=== PATIENT | male | born 1960 | race Caucasian/White ===

== ENCOUNTER 2016-04-28 15:52 | Inpatient (IN) | payer OTHER ==
[~2016-04-28] VITALS: Ht 175.3 cm; Wt 113.3 kg
[~2016-04-28 15:52] MED LIST: ACTOS45 MG PO; AMLODIPINE BESY10 MG PO; ARNUITY ELLIP100 MCG IH; ASPIRIN325 MG PO; BACTRIM,SEPT1 TABLET PO; CILOSTAZOL100 MG PO; CLEOCIN300 MG PO; COLACE100 MG PO; COREG12.5 M1 PO; DIOVAN160 MG PO; DOMP10T PO; FLOVENT 11120 INHALA AEROSOL; FLOVENT 11120 INHALA IH; GLYBURIDE5 MG PO; HYDROCHLOROTH12.5 M3 PO; HYDROCHLOROTHIA25 MG PO; INCRUSE ELLI62.5 MCG IH; INSULIN PUMP SCCONT; IRON325 MG PO; JANUVIA100 MG PO; KEFLEX500 MG PO; KLONOPIN1 MG PO; LANTUS 10100 UNITS/ SC; LANTUS100 UNIT/1 SQ; LASIX20 MG PO; LEVAQUIN500 MG PO; LEVOFLOXACIN750 MG PO; LIPITOR20 MG PO; LISINOPRIL40 MG PO; METFORMIN HCL1000 MG PO; NAPROSYN500 MG PO; NOVOLOG 10100 UNITS/ SC; PEPTO BISMOL262 MG PO; PERCOCET 5/31 TABLET PO; PLAVIX75 MG PO; PRAMIPEXOLE D0.25 MG PO; PREDNISONE10 MG PO; PREDNISONE20 MG PO; PROVENTIL HFA6.7 GM IH; PROVENTIL,2.5 MG/3 M IH; ROPINIROLE HCL2 MG PO; SENOKOT,SENN1 TABLET PO; SEREVENT DISKU50 MCG IH; TUDORZA PRESS400 MCG IH; TYLENOL EXTRA500 MG PO; VALSARTAN320 MG PO; VIMPAT100 MG PO; VIMPAT150 MG PO; VYTORIN 10-201 EACH PO; ZANTAC150 MG PO; ZESTRIL,PRINIVI10 MG PO
[2016-04-28 16:14] LABS: BASE EXCESS 6.1 mEq/L (-3 to +3); BICARBONATE 31.8 mEq/L (22-26); CARBOXY HGB 11.2 % (0-5); COMMENTS - BLOOD GASES A+C+; DEVICE PB 840 MASK VENT; FI02 30 %; METHEMOGLOBIN 0 % (0-1.5); MODE SPONT; PCO2 49 mm Hg (35-45); SITE RR; pH 7.42 (7.35-7.45)
[2016-04-28 16:15] LABS: PEEP 5 CM/H20; PRES. SUPPORT 12 CM/H2O; TOTAL RESP RATE 27 resp/min
[2016-04-28 16:35] LABS: EOSINOPHIL (%) 5.2 % (0-5); EOSINOPHIL COUNT 0.4 K/uL (0-0.3); HEMATOCRIT 42.7 % (38.0-50.0); IMMATURE GRANULOCYTE (%) 0.3 % (0.0-0.7); IMMATURE GRANULOCYTE COUNT 0.2 K/uL; LYMPHOCYTE COUNT 1.7 K/uL (1.0-2.8); MCH 31.2 PG (29.0-34.0); MCHC 34.9 G/DL (30.0-36.0); MCV 89.3 FL (86-99); MEAN PLAT.VOLUME 9.5 uM^3 (9.0-12.4); MONOCYTE (%) 8.2 % (3-12); MONOCYTE COUNT 0.6 K/uL (0-0.8); NEUTROPHIL (%) 61.9 % (45-76); NEUTROPHIL COUNT 4.3 K/uL (1.8-6.4); PLATELET COUNT 162 K/uL (156-360); RBC DIS.WIDTH-CV 14.5 % (11.8-14.6); RBC DIS.WIDTH-SD 46.1 % (39-53); RED BLOOD COUNT 4.78 M/uL (4.00-5.50); WHITE BLOOD COUNT 6.9 K/uL (4.1-10.2)
[2016-04-28 16:45] LABS: CHLORIDE 98 mEq/L (99-109); POTASSIUM 4.5 mEq/L (3.7-5.4); SODIUM 141 mEq/L (136-147)
[2016-04-28 16:47] LABS: GLUCOSE 229 mg/dL (70-99)
[2016-04-28 16:48] LABS: ANION GAP 11 MEQ/L (2-14)
[2016-04-28 16:51] LABS: GFR ESTIMATE (CALCULATED) 48 mL/min/
[2016-04-28 16:52] LABS: UREA NITROGEN (BUN) 32 mg/dL (9-23)
[2016-04-28 16:54] LABS: TROP-I INTERPRETATION NEGATIVE; TROPONIN-I < 0.01 ng/mL (0.0-0.30)
[2016-04-28 18:30] LABS: D-DIMER ELISA 0.69 mg/L FEU (< 0.57)
[2016-04-28] MEDS ORDERED: COREG25 M1 PO (18:39)
[2016-04-28] MEDS ORDERED: MIRAPEX1.5 MG PO (18:43)
[2016-04-28] MEDS ORDERED: LASIX40 MG PO (18:44)
[2016-04-28] MEDS ORDERED: ATORVASTATIN CA40 MG PO (18:49)
[2016-04-28] MEDS ORDERED: ERGOCALCIF50000 UNIT PO (18:50)
[2016-04-28] MEDS ORDERED: PROAIR HFA8.5 GM IH (18:52)
[2016-04-28 22:00] VITALS: BP 184/69; BP 187/64
[2016-04-28 23:46] LABS: METH RESISTANT S AUREUS PCR NEGATIVE (NEGATIVE)
[2016-04-28 23:50] LABS: PROBE CHECK PASS; SPECIMEN PROCESSING CONTROL PASS
[2016-04-29] VITALS (8 sets, daily range): BP systolic 136–182; BP diastolic 63–80
[2016-04-29 00:07] LABS: POINT-OF-CARE METER ID UU13113803
[2016-04-29 06:01] LABS: ANION GAP 8 MEQ/L (2-14); CHLORIDE 99 MEQ/L (99-109); GFR ESTIMATE (CALCULATED) > 59 mL/min/; GLUCOSE 308 mg/dL (70-99); POTASSIUM 4.6 MEQ/L (3.7-5.4); SAMPLE HEMOLYSIS CHECK 0; SAMPLE ICTERIC CHECK 0; SAMPLE LIPEMIA CHECK 0; SODIUM 135 MEQ/L (136-147); UREA NITROGEN (BUN) 34 mg/dL (9-23)
[2016-04-29 07:03] LABS: HEMATOCRIT 38.1 % (38.0-50.0); MCH 30.9 PG (29.0-34.0); MCHC 34.6 G/DL (30.0-36.0); MCV 89.2 FL (86-99); PLATELET COUNT 132 K/uL (156-360); RBC DIS.WIDTH-CV 13.9 % (11.8-14.6); RBC DIS.WIDTH-SD 45.2 % (39-53); RED BLOOD COUNT 4.27 M/uL (4.00-5.50)
[2016-04-29 08:56] LABS: POINT-OF-CARE METER ID UU13113731
[2016-04-29 10:35] LABS: INFLUENZA A VIRAL ANTIGEN NEGATIVE; INFLUENZA B VIRAL ANTIGEN NEGATIVE
[2016-04-29 11:49] LABS: POINT-OF-CARE METER ID UU13113731
[2016-04-29 13:59] LABS: ADD MIUA? YES; BILIRUBIN NEGATIVE; BLOOD MODERATE; COLOR YELLOW ((YELLOW)); GLUCOSE (STRIP) >=500; KETONES NEGATIVE; LEUKOCYTES NEGATIVE; NITRITE NEGATIVE; PROTEIN (STRIP) 100; SPECIFIC GRAVITY 1.015 (1.000-1.030); UROBILINOGEN 0.2 MG/DL (0.2-1.0)
[2016-04-29 14:16] LABS: BACTERIA RARE /HPF; EPITHELIAL CELLS RARE /HPF; HYALINE CASTS 0-5 /LPF; MUCUS TRACE /LPF; RED BLOOD CELLS 20-30 /HPF (0-5); UCUL ADDED? NO; WHITE BLOOD CELLS 0-5 /HPF (0-5)
[2016-04-29 18:11] LABS: POINT-OF-CARE METER ID UU13113731
[2016-04-29 22:22] LABS: POINT-OF-CARE METER ID UU13113731
[2016-04-30 07:13] LABS: EOSINOPHIL (%) 0 % (0-5); HEMATOCRIT 39.3 % (38.0-50.0); IMMATURE GRANULOCYTE (%) 0.3 % (0.0-0.7); IMMATURE GRANULOCYTE COUNT 0.1 K/uL; LYMPHOCYTE COUNT 0.8 K/uL (1.0-2.8); MCH 29.5 PG (29.0-34.0); MCHC 33.3 G/DL (30.0-36.0); MCV 88.5 FL (86-99); MONOCYTE (%) 5.6 % (3-12); MONOCYTE COUNT 0.9 K/uL (0-0.8); NEUTROPHIL (%) 88.9 % (45-76); NEUTROPHIL COUNT 13.8 K/uL (1.8-6.4); PLATELET COUNT 156 K/uL (156-360); RBC DIS.WIDTH-CV 14.1 % (11.8-14.6); RBC DIS.WIDTH-SD 45.2 % (39-53); RED BLOOD COUNT 4.44 M/uL (4.00-5.50)
[2016-04-30 07:18] LABS: WHITE BLOOD COUNT 15.5 K/uL (4.1-10.2)
[2016-04-30 07:23] LABS: ALKALINE PHOSPHATASE 59 IU/L (3-129); ANION GAP 8 MEQ/L (2-14); CHLORIDE 98 MEQ/L (99-109); GFR ESTIMATE (CALCULATED) > 59 mL/min/; GLUCOSE 331 mg/dL (70-99); POTASSIUM 4.4 MEQ/L (3.7-5.4); SAMPLE HEMOLYSIS CHECK 0; SAMPLE ICTERIC CHECK 0; SAMPLE LIPEMIA CHECK 0; SODIUM 132 MEQ/L (136-147); TOTAL BILIRUBIN 0.8 MG/DL (0.0-1.0); UREA NITROGEN (BUN) 35 mg/dL (9-23)
[2016-04-30 07:47] VITALS: BP 143/66
[2016-04-30 15:04] VITALS: BP 148/71
[2016-04-30 23:10] VITALS: BP 140/64
[2016-05-01 06:34] LABS: EOSINOPHIL (%) 0.1 % (0-5); IMMATURE GRANULOCYTE (%) 0.4 % (0.0-0.7); LYMPHOCYTE COUNT 0.9 K/uL (1.0-2.8); MCH 28.8 PG (29.0-34.0); MCHC 32.2 G/DL (30.0-36.0); MCV 89.6 FL (86-99); MEAN PLAT.VOLUME 10.2 uM^3 (9.0-12.4); MONOCYTE (%) 6.8 % (3-12); MONOCYTE COUNT 0.8 K/uL (0-0.8); NEUTROPHIL (%) 84.4 % (45-76); NEUTROPHIL COUNT 9.6 K/uL (1.8-6.4); PLATELET COUNT 142 K/uL (156-360); RBC DIS.WIDTH-CV 14.3 % (11.8-14.6); RBC DIS.WIDTH-SD 46.4 % (39-53); RED BLOOD COUNT 4.13 M/uL (4.00-5.50); WHITE BLOOD COUNT 11.4 K/uL (4.1-10.2)
[2016-05-01 06:56] LABS: ALKALINE PHOSPHATASE 55 IU/L (3-129); ANION GAP 6 MEQ/L (2-14); CHLORIDE 97 MEQ/L (99-109); GFR ESTIMATE (CALCULATED) > 59 mL/min/; GLUCOSE 323 mg/dL (70-99); POTASSIUM 4.7 MEQ/L (3.7-5.4); SAMPLE HEMOLYSIS CHECK 0; SAMPLE ICTERIC CHECK 0; SAMPLE LIPEMIA CHECK 0; SODIUM 131 MEQ/L (136-147); UREA NITROGEN (BUN) 40 mg/dL (9-23)
[2016-05-01 06:57] LABS: TOTAL BILIRUBIN 0.6 MG/DL (0.0-1.0)
[2016-05-01 08:13] VITALS: BP 136/70
[2016-05-01 12:26] LABS: GLUCOSE 416 mg/dL (70-99)
[2016-05-01 15:45] VITALS: BP 168/77
[2016-05-01 17:24] LABS: POINT-OF-CARE METER ID UU13113725
[2016-05-01 21:05] VITALS: BP 181/84
[2016-05-01 23:05] VITALS: BP 163/74
[2016-05-02 06:48] LABS: ANION GAP 8 MEQ/L (2-14); CHLORIDE 99 MEQ/L (99-109); GFR ESTIMATE (CALCULATED) > 59 mL/min/; POTASSIUM 3.8 MEQ/L (3.7-5.4); SAMPLE HEMOLYSIS CHECK 0; SAMPLE ICTERIC CHECK 0; SAMPLE LIPEMIA CHECK 0; SODIUM 135 MEQ/L (136-147); UREA NITROGEN (BUN) 42 mg/dL (9-23)
[2016-05-02 07:04] LABS: GLUCOSE 173 mg/dL (70-99)
[2016-05-02 07:36] VITALS: BP 136/69
[2016-05-02 11:30] LABS: POINT-OF-CARE METER ID UU13113725
[2016-05-02] MEDS ORDERED: PREDNISONE20 MG PO (13:43)
[2016-05-02] MEDS ORDERED: LEVOFLOXACIN750 MG PO (13:43)
[2016-05-02] MEDS ORDERED: SPIRIVA RESPIMAT4 GM IH (13:43)
== END 2016-05-02 15:06 | disposition home or self-care (01) | DRG 190 ==
LOC: EME 15:52 → EDOF 19:36 → 4WEST 19:36 → 5EAST 19:36 → 4WEST 21:37 → 5EAST 04-29 22:47
PROVIDERS: Emergency Medicine; Family Medicine; Hospitalist; Internal Medicine; Physician Assistant Medical
DX: J44.1 Chronic obstructive pulmonary disease with (acute) exacerbation (principal); J96.01 Acute respiratory failure with hypoxia; E10.22 Type 1 diabetes mellitus with diabetic chronic kidney disease; E10.65 Type 1 diabetes mellitus with hyperglycemia; K31.84 Gastroparesis; N18.3 Chronic kidney disease, stage 3 (moderate); G47.33 Obstructive sleep apnea (adult) (pediatric); I73.9 Peripheral vascular disease, unspecified; B19.20 Unspecified viral hepatitis C without hepatic coma; I12.9 Hypertensive chronic kidney disease with stage 1 through stage 4 chronic kidney disease, or unspecified chronic kidney disease; E78.5 Hyperlipidemia, unspecified; Z90.49 Acquired absence of other specified parts of digestive tract; F17.210 Nicotine dependence, cigarettes, uncomplicated; Z96.41 Presence of insulin pump (external) (internal); Z46.81 Encounter for fitting and adjustment of insulin pump
CPT/HCPCS: 36600; 71010; 71275; 80048; 80053; 81003; 82803; 82948; 83880; 84484; 84999; 85025; 85027; 85379; 87070; 87205; 87502; 87641; 93005; 93970; 94002; 94640; 94640 76; 94799; 99202; 99281; 99285; J1100; J1650; J1815; J1956; J2920; J2930; J7512; J7644

== ENCOUNTER 2016-10-12 21:49 | Inpatient (IN) | payer OTHER ==
[~2016-10-12] VITALS: Ht 175.3 cm; Wt 121.9 kg
[~2016-10-12 21:49] MED LIST changes: +ATORVASTATIN CA40 MG PO; +COREG25 M1 PO; +ERGOCALCIF50000 UNIT PO; +LASIX40 MG PO; +MIRAPEX1.5 MG PO; +PROAIR HFA8.5 GM IH; +SPIRIVA RESPIMAT4 GM IH
[2016-10-12 22:38] LABS: HEMATOCRIT 45.2 % (38.0-50.0); MCH 28.1 PG (29.0-34.0); MCHC 32.5 G/DL (30.0-36.0); MCV 86.4 FL (86-99); MEAN PLAT.VOLUME 9.1 uM^3 (9.0-12.4); PLATELET COUNT 198 K/uL (156-360); RBC DIS.WIDTH-CV 14.6 % (11.8-14.6); RBC DIS.WIDTH-SD 45.9 % (39-53); RED BLOOD COUNT 5.23 M/uL (4.00-5.50); WHITE BLOOD COUNT 7.7 K/uL (4.1-10.2)
[2016-10-12 22:56] LABS: CHLORIDE 99 mEq/L (99-109); SODIUM 139 mEq/L (136-147)
[2016-10-12 22:57] LABS: GLUCOSE 114 mg/dL (70-99)
[2016-10-12 22:59] LABS: ANION GAP 9 MEQ/L (2-14)
[2016-10-12 23:01] LABS: GFR ESTIMATE (CALCULATED) 45 mL/min/
[2016-10-12 23:02] LABS: UREA NITROGEN (BUN) 37 mg/dL (9-23)
[2016-10-12 23:03] LABS: TROP-I INTERPRETATION NEGATIVE; TROPONIN-I < 0.01 ng/mL (0.0-0.30)
[2016-10-13 00:46] LABS: TROP-I INTERPRETATION NEGATIVE; TROPONIN-I < 0.01 ng/mL (0.0-0.30)
[2016-10-13] MEDS ORDERED: XALATAN2.5 ML BOTH EYES (02:02)
[2016-10-13] MEDS ORDERED: GLUCAGON1 MG IM (02:03)
[2016-10-13] MEDS ORDERED: CYMBALTA60 MG PO (02:03)
[2016-10-13] MEDS ORDERED: PLAQUENIL200 MG PO (02:03)
[2016-10-13 03:01] VITALS: BP 184/84
[2016-10-13 09:08] VITALS: BP 129/71
[2016-10-13 09:25] LABS: TROP-I INTERPRETATION NEGATIVE; TROPONIN-I < 0.01 ng/mL (0.0-0.30)
[2016-10-13 10:45] VITALS: BP 132/79
[2016-10-13 14:47] VITALS: BP 138/81
[2016-10-13 19:55] VITALS: BP 154/77
[2016-10-13 23:24] VITALS: BP 161/76
[2016-10-14 03:35] VITALS: BP 168/78
[2016-10-14 06:09] LABS: HEMATOCRIT 43.3 % (38.0-50.0); MCH 28.7 PG (29.0-34.0); MCHC 33.7 G/DL (30.0-36.0); MCV 85.2 FL (86-99); PLATELET COUNT 172 K/uL (156-360); RBC DIS.WIDTH-CV 14.4 % (11.8-14.6); RED BLOOD COUNT 5.08 M/uL (4.00-5.50); WHITE BLOOD COUNT 10.1 K/uL (4.1-10.2)
[2016-10-14 07:25] LABS: ANION GAP 7 MEQ/L (2-14); CHLORIDE 101 MEQ/L (99-109); GFR ESTIMATE (CALCULATED) 51 mL/min/; SAMPLE HEMOLYSIS CHECK 0; SAMPLE ICTERIC CHECK 0; SAMPLE LIPEMIA CHECK 0; SODIUM 138 MEQ/L (136-147); UREA NITROGEN (BUN) 36 mg/dL (9-23)
[2016-10-14 07:25] LABS: POINT-OF-CARE METER ID UU14188625
[2016-10-14 07:28] LABS: GLUCOSE 226 mg/dL (70-99)
[2016-10-14 07:40] VITALS: BP 160/94
[2016-10-14 07:40] LABS: TROP-I INTERPRETATION NEGATIVE; TROPONIN-I < 0.01 ng/mL (0.0-0.30)
[2016-10-14 11:25] VITALS: BP 179/75
[2016-10-14 11:28] LABS: POINT-OF-CARE METER ID UU14188625
[2016-10-14 16:16] VITALS: BP 184/84
[2016-10-14 16:44] LABS: POINT-OF-CARE METER ID UU14188625
[2016-10-14 19:33] VITALS: BP 179/84
[2016-10-14 23:32] VITALS: BP 180/84
[2016-10-15 03:20] VITALS: BP 164/76
[2016-10-15 05:31] LABS: HEMATOCRIT 44.6 % (38.0-50.0); MCH 27.7 PG (29.0-34.0); MCHC 32.3 G/DL (30.0-36.0); MCV 85.8 FL (86-99); MEAN PLAT.VOLUME 9.2 uM^3 (9.0-12.4); PLATELET COUNT 206 K/uL (156-360); RBC DIS.WIDTH-CV 14.5 % (11.8-14.6); RBC DIS.WIDTH-SD 44.8 % (39-53); WHITE BLOOD COUNT 15.4 K/uL (4.1-10.2)
[2016-10-15 05:56] LABS: ANION GAP 11 MEQ/L (2-14); CHLORIDE 101 MEQ/L (99-109); GFR ESTIMATE (CALCULATED) 56 mL/min/; GLUCOSE 208 mg/dL (70-99); POTASSIUM 5.3 MEQ/L (3.7-5.4); SAMPLE HEMOLYSIS CHECK 0; SAMPLE ICTERIC CHECK 0; SAMPLE LIPEMIA CHECK 0; SODIUM 139 MEQ/L (136-147); UREA NITROGEN (BUN) 38 mg/dL (9-23)
[2016-10-15 08:22] VITALS: BP 162/81
[2016-10-15 08:23] LABS: POINT-OF-CARE METER ID UU14188625
[2016-10-15 11:45] VITALS: BP 143/69
[2016-10-15 11:47] LABS: POINT-OF-CARE METER ID UU14188625
[2016-10-15 16:01] VITALS: BP 184/89
[2016-10-15 19:48] VITALS: BP 178/84
[2016-10-15 23:36] VITALS: BP 181/86
[2016-10-16 03:19] VITALS: BP 133/67
[2016-10-16 07:16] VITALS: BP 124/67
[2016-10-16 07:34] LABS: POINT-OF-CARE METER ID UU14174225
[2016-10-16 11:22] VITALS: BP 160/87
[2016-10-16 11:23] LABS: POINT-OF-CARE METER ID UU13113717
[2016-10-16] MEDS ORDERED: BUPROPION HCL150 M2 PO (11:29)
[2016-10-16] MEDS ORDERED: GABAPENTIN300 MG PO (11:30)
[2016-10-16] MEDS ORDERED: PRAMIPEXOLE DI0.5 MG PO (11:30)
[2016-10-16] MEDS ORDERED: BENZONATATE100 MG PO (11:31)
[2016-10-16] MEDS ORDERED: PREDNISONE10 MG PO (11:34)
[2016-10-16] MEDS ORDERED: OMNICEF300 MG PO (11:39)
== END 2016-10-16 13:14 | disposition home or self-care (01) | DRG 190 ==
LOC: RME 21:49 → EME 21:49 → EDOF 10-13 01:22 → 5SOUTH 10-13 01:22 → ENRESERV 10-13 01:23 → 5SOUTH 10-13 02:37 → ENPENDDIS 10-16 → 5SOUTH 10-16 13:14
PROVIDERS: Hospitalist; Nurse Practitioner Adult Health; Physician Assistant Medical
DX: J44.0 Chronic obstructive pulmonary disease with (acute) lower respiratory infection (principal); J18.9 Pneumonia, unspecified organism; N18.3 Chronic kidney disease, stage 3 (moderate); I12.9 Hypertensive chronic kidney disease with stage 1 through stage 4 chronic kidney disease, or unspecified chronic kidney disease; G47.33 Obstructive sleep apnea (adult) (pediatric); E11.22 Type 2 diabetes mellitus with diabetic chronic kidney disease; E11.43 Type 2 diabetes mellitus with diabetic autonomic (poly)neuropathy; K31.84 Gastroparesis; E78.5 Hyperlipidemia, unspecified; K21.9 Gastro-esophageal reflux disease without esophagitis; M06.9 Rheumatoid arthritis, unspecified; G89.29 Other chronic pain; M48.02 Spinal stenosis, cervical region; F17.200 Nicotine dependence, unspecified, uncomplicated; Z79.4 Long term (current) use of insulin; M50.123 Cervical disc disorder at C6-C7 level with radiculopathy; E66.9 Obesity, unspecified; Z68.39 Body mass index [BMI] 39.0-39.9, adult; Z79.02 Long term (current) use of antithrombotics/antiplatelets; Z79.82 Long term (current) use of aspirin; Z86.73 Personal history of transient ischemic attack (TIA), and cerebral infarction without residual deficits
CPT/HCPCS: 71010; 71020; 72040; 72141; 80048; 82948; 84484; 85027; 93005; 94640; 94640 76; 94799; 99202; 99281; 99285; J0456; J0696; J1200; J1644; J1885; J1956; J2060; J2270; J2920; J3360; J7030; J7050

== ENCOUNTER 2016-10-19 15:37 | Inpatient (IN) | payer OTHER ==
[~2016-10-19] VITALS: Ht 175.3 cm; Wt 120.4 kg
[~2016-10-19 15:37] MED LIST changes: +BENZONATATE100 MG PO; +BUPROPION HCL150 M2 PO; +CYMBALTA60 MG PO; +GABAPENTIN300 MG PO; +GLUCAGON1 MG IM; +OMNICEF300 MG PO; +PLAQUENIL200 MG PO; +PRAMIPEXOLE DI0.5 MG PO; +XALATAN2.5 ML BOTH EYES
[2016-10-19 16:18] LABS: BASE EXCESS 3.9 mEq/L (-3 to +3); BICARBONATE 30.2 mEq/L (22-26); CARBOXY HGB 7.8 % (0-5); METHEMOGLOBIN 1.1 % (0-1.5); PCO2 51 mm Hg (35-45); PO2 52 mm Hg (80-100); pH 7.38 (7.35-7.45)
[2016-10-19 16:19] LABS: COMMENTS - BLOOD GASES A+C+; DEVICE RA; SITE LR; TOTAL RESP RATE 14 resp/min
[2016-10-19 16:48] LABS: HEMATOCRIT 39.6 % (38.0-50.0); MCH 27.9 PG (29.0-34.0); MCHC 32.8 G/DL (30.0-36.0); MEAN PLAT.VOLUME 9.4 uM^3 (9.0-12.4); PLATELET COUNT 179 K/uL (156-360); RBC DIS.WIDTH-CV 14.5 % (11.8-14.6); RBC DIS.WIDTH-SD 44.4 % (39-53); RED BLOOD COUNT 4.66 M/uL (4.00-5.50); WHITE BLOOD COUNT 10.9 K/uL (4.1-10.2)
[2016-10-19 16:57] LABS: CHLORIDE 101 mEq/L (99-109); POTASSIUM 4.3 mEq/L (3.7-5.4); SODIUM 139 mEq/L (136-147)
[2016-10-19 17:00] LABS: GLUCOSE 183 mg/dL (70-99)
[2016-10-19 17:01] LABS: ANION GAP 10 MEQ/L (2-14)
[2016-10-19 17:02] LABS: TOTAL BILIRUBIN 0.4 mg/dL (0.0-1.0)
[2016-10-19 17:03] LABS: ALKALINE PHOSPHATASE 66 IU/L (3-129); GFR ESTIMATE (CALCULATED) 35 mL/min/
[2016-10-19 17:06] LABS: UREA NITROGEN (BUN) 65 mg/dL (9-23)
[2016-10-19 17:12] LABS: TROP-I INTERPRETATION NEGATIVE; TROPONIN-I 0.01 ng/mL (0.0-0.30)
[2016-10-19 17:44] LABS: ADD MIUA? YES; BILIRUBIN NEGATIVE; BLOOD SMALL; COLOR YELLOW ((YELLOW)); GLUCOSE (STRIP) NEGATIVE; KETONES NEGATIVE; LEUKOCYTES NEGATIVE; NITRITE NEGATIVE; PROTEIN (STRIP) 30; SPECIFIC GRAVITY 1.011 (1.000-1.030); UROBILINOGEN 0.2 MG/DL (0.2-1.0)
[2016-10-19 17:54] LABS: BACTERIA NONE SEEN /HPF; EPITHELIAL CELLS NONE SEEN /HPF; MUCUS TRACE /LPF; WHITE BLOOD CELLS 0-5 /HPF (0-5)
[2016-10-19] MEDS ORDERED: PREDNISONE10 MG PO (22:02)
[2016-10-19 23:32] VITALS: BP 183/79
[2016-10-20 01:51] LABS: METH RESISTANT S AUREUS PCR NEGATIVE (NEGATIVE)
[2016-10-20 01:54] LABS: PROBE CHECK PASS; SPECIMEN PROCESSING CONTROL PASS
[2016-10-20 03:00] VITALS: BP 139/66
[2016-10-20 04:30] VITALS: BP 129/63
[2016-10-20 05:36] LABS: HEMATOCRIT 40.9 % (38.0-50.0); MCHC 33.5 G/DL (30.0-36.0); MCV 86.5 FL (86-99); MEAN PLAT.VOLUME 9.9 uM^3 (9.0-12.4); PLATELET COUNT 171 K/uL (156-360); RBC DIS.WIDTH-CV 14.5 % (11.8-14.6); RBC DIS.WIDTH-SD 45.9 % (39-53); RED BLOOD COUNT 4.73 M/uL (4.00-5.50); WHITE BLOOD COUNT 9.7 K/uL (4.1-10.2)
[2016-10-20 06:44] LABS: ALKALINE PHOSPHATASE 59 IU/L (3-129); ANION GAP 5 MEQ/L (2-14); CHLORIDE 101 MEQ/L (99-109); GFR ESTIMATE (CALCULATED) 42 mL/min/; SAMPLE HEMOLYSIS CHECK 0; SAMPLE ICTERIC CHECK 0; SAMPLE LIPEMIA CHECK 0; SODIUM 137 MEQ/L (136-147); TOTAL BILIRUBIN 0.5 MG/DL (0.0-1.0); UREA NITROGEN (BUN) 51 mg/dL (9-23)
[2016-10-20 06:50] LABS: GLUCOSE 327 mg/dL (70-99); POTASSIUM 5.2 MEQ/L (3.7-5.4)
[2016-10-20 07:59] LABS: POINT-OF-CARE METER ID UU13113700
[2016-10-20 08:28] VITALS: BP 179/81
[2016-10-20 11:19] VITALS: BP 154/67
[2016-10-20 11:58] LABS: BASE EXCESS 0.2 mEq/L (-3 to +3); BICARBONATE 26.5 mEq/L (22-26); CARBOXY HGB 3.7 % (0-5); METHEMOGLOBIN 1.6 % (0-1.5); PCO2 48 mm Hg (35-45); pH 7.35 (7.35-7.45)
[2016-10-20 11:59] LABS: COMMENTS - BLOOD GASES A+C+; DEVICE NC; O2 FLOW 1 L/MIN; PO2 70 mm Hg (80-100); SITE RR; TOTAL RESP RATE 16 resp/min
[2016-10-20 12:43] LABS: POINT-OF-CARE METER ID UU13113831
[2016-10-20 15:21] VITALS: BP 172/78
[2016-10-20 21:00] VITALS: BP 165/81
[2016-10-20 22:02] LABS: POINT-OF-CARE METER ID UU13113700
[2016-10-21] VITALS (10 sets, daily range): BP systolic 130–197; BP diastolic 70–90
[2016-10-21 06:38] LABS: EOSINOPHIL (%) 0.5 % (0-5); EOSINOPHIL COUNT 0.1 K/uL (0-0.3); HEMATOCRIT 41.7 % (38.0-50.0); IMMATURE GRANULOCYTE (%) 1.1 % (0.0-0.7); IMMATURE GRANULOCYTE COUNT 0.2 K/uL; INSTRUMENT ABS NEUTROPHIL CT 13.6 K/uL; LYMPHOCYTE COUNT 1.7 K/uL (1.0-2.8); MCH 28.3 PG (29.0-34.0); MCHC 33.6 G/DL (30.0-36.0); MCV 84.4 FL (86-99); MEAN PLAT.VOLUME 9.4 uM^3 (9.0-12.4); MONOCYTE (%) 8.5 % (3-12); MONOCYTE COUNT 1.5 K/uL (0-0.8); NEUTROPHIL COUNT 13.6 K/uL (1.8-6.4); PLATELET COUNT 199 K/uL (156-360); RBC DIS.WIDTH-CV 14.5 % (11.8-14.6); RED BLOOD COUNT 4.94 M/uL (4.00-5.50)
[2016-10-21 07:12] LABS: ANION GAP 8 MEQ/L (2-14); CHLORIDE 100 MEQ/L (99-109); GFR ESTIMATE (CALCULATED) > 59 mL/min/; GLUCOSE 188 mg/dL (70-99); POTASSIUM 4.2 MEQ/L (3.7-5.4); SAMPLE HEMOLYSIS CHECK 0; SAMPLE ICTERIC CHECK 0; SAMPLE LIPEMIA CHECK 0; SODIUM 139 MEQ/L (136-147); UREA NITROGEN (BUN) 41 mg/dL (9-23)
[2016-10-21 10:40] LABS: POINT-OF-CARE METER ID UU13113700
[2016-10-21 10:40] LABS: POINT-OF-CARE METER ID UU13113831
[2016-10-21 12:02] LABS: POINT-OF-CARE METER ID UU13113725
[2016-10-21 16:32] LABS: POINT-OF-CARE METER ID UU13113725
[2016-10-21 16:35] LABS: ANION GAP 4 MEQ/L (2-14); CHLORIDE 101 MEQ/L (99-109); MAGNESIUM 1.8 mg/dl (1.3-2.7); SAMPLE HEMOLYSIS CHECK 0; SAMPLE ICTERIC CHECK 0; SAMPLE LIPEMIA CHECK 0; SODIUM 136 MEQ/L (136-147)
[2016-10-21 16:47] LABS: GFR ESTIMATE (CALCULATED) > 59 mL/min/; GLUCOSE 199 mg/dL (70-99); UREA NITROGEN (BUN) 39 mg/dL (9-23)
[2016-10-21 16:48] LABS: POTASSIUM 5.1 MEQ/L (3.7-5.4)
[2016-10-21 21:23] LABS: POINT-OF-CARE METER ID UU13113725
[2016-10-22 03:25] VITALS: BP 168/81
[2016-10-22 07:04] VITALS: BP 153/74
[2016-10-22 08:38] LABS: HEMATOCRIT 42.7 % (38.0-50.0); MCH 28.9 PG (29.0-34.0); MCHC 33.7 G/DL (30.0-36.0); MCV 85.6 FL (86-99); MEAN PLAT.VOLUME 9.1 uM^3 (9.0-12.4); PLATELET COUNT 181 K/uL (156-360); RBC DIS.WIDTH-CV 14.8 % (11.8-14.6); RBC DIS.WIDTH-SD 45.9 % (39-53); RED BLOOD COUNT 4.99 M/uL (4.00-5.50); WHITE BLOOD COUNT 10.3 K/uL (4.1-10.2)
[2016-10-22 09:04] LABS: ANION GAP 8 MEQ/L (2-14); CHLORIDE 100 MEQ/L (99-109); GFR ESTIMATE (CALCULATED) > 59 mL/min/; GLUCOSE 131 mg/dL (70-99); POTASSIUM 4.3 MEQ/L (3.7-5.4); SAMPLE HEMOLYSIS CHECK 0; SAMPLE ICTERIC CHECK 0; SAMPLE LIPEMIA CHECK 0; SODIUM 140 MEQ/L (136-147); UREA NITROGEN (BUN) 32 mg/dL (9-23)
== END 2016-10-22 10:38 | disposition home or self-care (01) | DRG 947 ==
LOC: EME 15:37 → EDOF 21:49 → ENRESERV 21:50 → 5WEST 23:22 → ENRESERV 10-20 10:31 → 5EAST 10-21 00:34
PROVIDERS: Hospitalist; Internal Medicine; Physician Assistant Medical
DX: R41.82 Altered mental status, unspecified (principal); N17.9 Acute kidney failure, unspecified; J44.1 Chronic obstructive pulmonary disease with (acute) exacerbation; T42.6X5A Adverse effect of other antiepileptic and sedative-hypnotic drugs, initial encounter; E66.01 Morbid (severe) obesity due to excess calories; G47.33 Obstructive sleep apnea (adult) (pediatric); E11.43 Type 2 diabetes mellitus with diabetic autonomic (poly)neuropathy; E87.2 Acidosis; M48.02 Spinal stenosis, cervical region; N18.3 Chronic kidney disease, stage 3 (moderate); M54.12 Radiculopathy, cervical region; F17.200 Nicotine dependence, unspecified, uncomplicated; Z79.4 Long term (current) use of insulin; Z96.41 Presence of insulin pump (external) (internal); F10.21 Alcohol dependence, in remission; E78.5 Hyperlipidemia, unspecified; Z88.6 Allergy status to analgesic agent; Z68.39 Body mass index [BMI] 39.0-39.9, adult; R26.89 Other abnormalities of gait and mobility; K21.9 Gastro-esophageal reflux disease without esophagitis; Z86.14 Personal history of Methicillin resistant Staphylococcus aureus infection; J96.91 Respiratory failure, unspecified with hypoxia; R06.89 Other abnormalities of breathing
CPT/HCPCS: 36600; 70450; 70551; 71010; 71250; 80048; 80048 91; 80053; 81003; 82803; 82948; 83735; 83880; 84100; 84484; 85025; 85027; 87070; 87106; 87205; 87641; 93005; 94640; 94640 76; 94660; 94799; 95819; 99202; 99281; 99285; G0378; J0360; J0692; J1644; J2060; J2930; J3475; J7030; J7040; J7050; J7512

== ENCOUNTER 2017-01-06 21:38 | Inpatient (IN) | payer OTHER ==
[~2017-01-06] VITALS: Ht 175.3 cm; Wt 125.9 kg
[~2017-01-06 21:38] MED LIST changes: -AMLODIPINE BESY10 MG PO; +AMLODIPINE BESYL5 MG PO
[2017-01-06 22:42] LABS: MCH 29.2 PG (29.0-34.0); MCHC 33.3 G/DL (30.0-36.0); MCV 87.7 FL (86-99); MEAN PLAT.VOLUME 9.3 uM^3 (9.0-12.4); PLATELET COUNT 177 K/uL (156-360); RBC DIS.WIDTH-CV 14.4 % (11.8-14.6); RBC DIS.WIDTH-SD 45.8 % (39-53); RED BLOOD COUNT 4.79 M/uL (4.00-5.50); WHITE BLOOD COUNT 6.8 K/uL (4.1-10.2)
[2017-01-06 22:53] LABS: CHLORIDE 98 mEq/L (99-109); POTASSIUM 4.2 mEq/L (3.7-5.4); SODIUM 141 mEq/L (136-147)
[2017-01-06 22:55] LABS: GLUCOSE 107 mg/dL (70-99)
[2017-01-06 22:57] LABS: ANION GAP 11 MEQ/L (2-14); TOTAL BILIRUBIN 0.5 mg/dL (0.0-1.0)
[2017-01-06 22:59] LABS: ALKALINE PHOSPHATASE 76 IU/L (3-129); GFR ESTIMATE (CALCULATED) 45 mL/min/
[2017-01-06 23:00] LABS: UREA NITROGEN (BUN) 34 mg/dL (9-23)
[2017-01-06 23:01] LABS: DIRECT BILIRUBIN 0.2 mg/dL (0.0-0.3)
[2017-01-06 23:02] LABS: LIPASE 13 U/L (1.0-51.0)
[2017-01-06 23:03] LABS: TROP-I INTERPRETATION NEGATIVE; TROPONIN-I < 0.01 ng/mL (0.0-0.30)
[2017-01-07 01:01] LABS: ADD MIUA? YES; BILIRUBIN NEGATIVE; BLOOD NEGATIVE; COLOR YELLOW ((YELLOW)); GLUCOSE (STRIP) NEGATIVE; KETONES NEGATIVE; LEUKOCYTES NEGATIVE; NITRITE NEGATIVE; PROTEIN (STRIP) 100; SPECIFIC GRAVITY 1.013 (1.000-1.030); UROBILINOGEN 0.2 MG/DL (0.2-1.0)
[2017-01-07 01:05] LABS: BACTERIA NONE SEEN /HPF; EPITHELIAL CELLS NONE SEEN /HPF; MUCUS TRACE /LPF; RED BLOOD CELLS 0-5 /HPF (0-5); UCUL ADDED? NO; WHITE BLOOD CELLS 0-5 /HPF (0-5)
[2017-01-07 05:50] LABS: TROP-I INTERPRETATION NEGATIVE; TROPONIN-I < 0.01 ng/mL (0.0-0.30)
[2017-01-07 06:17] VITALS: BP 189/88
[2017-01-07 07:47] VITALS: BP 176/82
[2017-01-07 08:24] LABS: POINT-OF-CARE METER ID UU14117124
[2017-01-07] MEDS ORDERED: LASIX20 MG PO (11:03)
[2017-01-07 11:07] LABS: POINT-OF-CARE METER ID UU14117124
[2017-01-07 11:48] VITALS: BP 165/79
[2017-01-07 15:23] VITALS: BP 1257/74
[2017-01-07 16:17] LABS: POINT-OF-CARE METER ID UU14208753
[2017-01-07 19:14] VITALS: BP 171/75
[2017-01-07 21:25] LABS: POINT-OF-CARE METER ID UU14117124
[2017-01-07 23:41] VITALS: BP 155/74
[2017-01-08 04:09] VITALS: BP 168/79
[2017-01-08 06:11] LABS: POINT-OF-CARE METER ID UU14188577
[2017-01-08 06:14] LABS: HEMATOCRIT 42.7 % (38.0-50.0); MCH 28.7 PG (29.0-34.0); MEAN PLAT.VOLUME 9.5 uM^3 (9.0-12.4); PLATELET COUNT 154 K/uL (156-360); RBC DIS.WIDTH-CV 14.2 % (11.8-14.6); RBC DIS.WIDTH-SD 44.9 % (39-53); RED BLOOD COUNT 4.91 M/uL (4.00-5.50); WHITE BLOOD COUNT 8.9 K/uL (4.1-10.2)
[2017-01-08 06:34] LABS: ANION GAP 8 MEQ/L (2-14); CHLORIDE 98 MEQ/L (99-109); GFR ESTIMATE (CALCULATED) > 59 mL/min/; GLUCOSE 274 mg/dL (70-99); SAMPLE HEMOLYSIS CHECK 0; SAMPLE ICTERIC CHECK 0; SAMPLE LIPEMIA CHECK 0; SODIUM 137 MEQ/L (136-147); UREA NITROGEN (BUN) 28 mg/dL (9-23)
[2017-01-08 07:17] VITALS: BP 159/75
[2017-01-08 11:06] LABS: POINT-OF-CARE METER ID UU14188577
[2017-01-08 11:54] VITALS: BP 125/58
[2017-01-08 15:38] VITALS: BP 143/65
[2017-01-08 16:03] LABS: POINT-OF-CARE METER ID UU14117124
[2017-01-08 20:01] VITALS: BP 178/78
[2017-01-08 22:00] LABS: POINT-OF-CARE METER ID UU14188577
[2017-01-09 00:07] VITALS: BP 176/78
[2017-01-09 04:46] VITALS: BP 129/61
[2017-01-09 06:32] LABS: POINT-OF-CARE METER ID UU14149397
[2017-01-09 08:06] LABS: POINT-OF-CARE METER ID UU14149397
[2017-01-09 08:25] VITALS: BP 162/74
[2017-01-09 10:12] LABS: POINT-OF-CARE METER ID UU14117124
[2017-01-09 10:12] LABS: POINT-OF-CARE METER ID UU14117124
[2017-01-09 11:17] LABS: POINT-OF-CARE METER ID UU14149397
[2017-01-09 12:19] VITALS: BP 148/72
[2017-01-09 15:54] LABS: POINT-OF-CARE METER ID UU14208753
[2017-01-09 16:51] VITALS: BP 136/70
[2017-01-09 20:11] VITALS: BP 143/65
[2017-01-09 23:29] LABS: POINT-OF-CARE METER ID UU14188577
[2017-01-10] VITALS (10 sets, daily range): BP systolic 126–190; BP diastolic 67–86
[2017-01-10 06:29] LABS: POINT-OF-CARE METER ID UU14149397
[2017-01-10] MEDS ORDERED: ULTRAM50 MG PO (10:29)
[2017-01-10] MEDS ORDERED: PREDNISONE10 MG PO (10:29)
[2017-01-10] MEDS ORDERED: AUGMENTIN500 MG PO (10:32)
[2017-01-10 12:05] LABS: POINT-OF-CARE METER ID UU14149397
[2017-01-10 14:01] LABS: BASE EXCESS 11.1 mEq/L (-3 to +3); BICARBONATE 37.4 mEq/L (22-26); CARBOXY HGB 2.7 % (0-5); COMMENTS - BLOOD GASES A+C+; DEVICE NC; METHEMOGLOBIN 1.7 % (0-1.5); O2 FLOW 2 L/MIN; PCO2 55 mm Hg (35-45); PO2 70 mm Hg (80-100); SITE RR; TOTAL RESP RATE 14 resp/min; pH 7.44 (7.35-7.45)
[2017-01-10 14:12] LABS: POINT-OF-CARE METER ID UU14188577
[2017-01-10 14:14] LABS: EOSINOPHIL (%) 0.7 % (0-5); EOSINOPHIL COUNT 0.1 K/uL (0-0.3); IMMATURE GRANULOCYTE (%) 0.6 % (0.0-0.7); IMMATURE GRANULOCYTE COUNT 0.1 K/uL; INSTRUMENT ABS NEUTROPHIL CT 8.8 K/uL; LYMPHOCYTE COUNT 0.9 K/uL (1.0-2.8); MCH 29.1 PG (29.0-34.0); MCHC 33.3 G/DL (30.0-36.0); MCV 87.5 FL (86-99); MEAN PLAT.VOLUME 9.1 uM^3 (9.0-12.4); MONOCYTE COUNT 0.6 K/uL (0-0.8); NEUTROPHIL (%) 84.2 % (45-76); NEUTROPHIL COUNT 8.8 K/uL (1.8-6.4); PLATELET COUNT 157 K/uL (156-360); RBC DIS.WIDTH-CV 14.4 % (11.8-14.6); RBC DIS.WIDTH-SD 45.4 % (39-53); RED BLOOD COUNT 4.57 M/uL (4.00-5.50); WHITE BLOOD COUNT 10.4 K/uL (4.1-10.2)
[2017-01-10 14:37] LABS: TROP-I INTERPRETATION NEGATIVE; TROPONIN-I 0.02 ng/mL (0.0-0.30)
[2017-01-10 15:55] LABS: POINT-OF-CARE METER ID UU14188577
[2017-01-10 20:32] LABS: TROP-I INTERPRETATION NEGATIVE; TROPONIN-I 0.01 ng/mL (0.0-0.30)
[2017-01-10 20:34] LABS: ANION GAP 6 MEQ/L (2-14); CHLORIDE 96 MEQ/L (99-109); GFR ESTIMATE (CALCULATED) 45 mL/min/; GLUCOSE 347 mg/dL (70-99); POTASSIUM 4.6 MEQ/L (3.7-5.4); SAMPLE HEMOLYSIS CHECK 0; SAMPLE ICTERIC CHECK 0; SAMPLE LIPEMIA CHECK 0; SODIUM 135 MEQ/L (136-147); UREA NITROGEN (BUN) 34 mg/dL (9-23)
[2017-01-10 21:35] LABS: POINT-OF-CARE METER ID UU14208753
[2017-01-11 03:20] LABS: TROP-I INTERPRETATION NEGATIVE; TROPONIN-I < 0.01 ng/mL (0.0-0.30)
[2017-01-11 03:26] VITALS: BP 143/68
[2017-01-11 06:38] LABS: POINT-OF-CARE METER ID UU14117124
[2017-01-11 09:03] VITALS: BP 150/70
== END 2017-01-11 11:01 | disposition home health service (06) | DRG 194 ==
LOC: EME 21:38 → EDOF 01-07 04:41 → 3EAST 01-07 04:41 → ENRESERV 01-07 04:42 → 3EAST 01-07 06:06
PROVIDERS: Emergency Medicine; Hospitalist; Physician Assistant
DX: J18.9 Pneumonia, unspecified organism (principal); J44.0 Chronic obstructive pulmonary disease with (acute) lower respiratory infection; J44.1 Chronic obstructive pulmonary disease with (acute) exacerbation; I13.0 Hypertensive heart and chronic kidney disease with heart failure and stage 1 through stage 4 chronic kidney disease, or unspecified chronic kidney disease; I50.9 Heart failure, unspecified; N18.3 Chronic kidney disease, stage 3 (moderate); E10.22 Type 1 diabetes mellitus with diabetic chronic kidney disease; E10.43 Type 1 diabetes mellitus with diabetic autonomic (poly)neuropathy; K31.84 Gastroparesis; E10.51 Type 1 diabetes mellitus with diabetic peripheral angiopathy without gangrene; E10.65 Type 1 diabetes mellitus with hyperglycemia; T38.0X5A Adverse effect of glucocorticoids and synthetic analogues, initial encounter; R41.0 Disorientation, unspecified; T40.2X5A Adverse effect of other opioids, initial encounter; R07.89 Other chest pain; G47.33 Obstructive sleep apnea (adult) (pediatric); K21.9 Gastro-esophageal reflux disease without esophagitis; I25.10 Atherosclerotic heart disease of native coronary artery without angina pectoris; M06.9 Rheumatoid arthritis, unspecified; I87.8 Other specified disorders of veins; K74.60 Unspecified cirrhosis of liver; Y95 Nosocomial condition; B19.20 Unspecified viral hepatitis C without hepatic coma; F41.9 Anxiety disorder, unspecified; F32.9 Major depressive disorder, single episode, unspecified; H40.9 Unspecified glaucoma; F10.21 Alcohol dependence, in remission; F17.200 Nicotine dependence, unspecified, uncomplicated; Z96.41 Presence of insulin pump (external) (internal); E66.9 Obesity, unspecified; Z68.41 Body mass index [BMI] 40.0-44.9, adult; Z99.81 Dependence on supplemental oxygen; Z79.4 Long term (current) use of insulin; Z79.82 Long term (current) use of aspirin; Z79.02 Long term (current) use of antithrombotics/antiplatelets; Z86.73 Personal history of transient ischemic attack (TIA), and cerebral infarction without residual deficits; Z87.01 Personal history of pneumonia (recurrent); Z95.1 Presence of aortocoronary bypass graft; Z91.19 Patient's noncompliance with other medical treatment and regimen; Z87.442 Personal history of urinary calculi
CPT/HCPCS: 36600; 70450; 71020; 74176; 80048; 80076; 81003; 82803; 82948; 83605; 83690; 83880; 84484; 85025; 85027; 85379; 87040; 87493; 93005; 94640; 94640 76; 94660; 94799; 99281; 99285; J0295; J0360; J0456; J0692; J1644; J1815; J2270; J2930; J3010; J3370; J7040; J7050; J7512

== ENCOUNTER 2017-01-28 20:18 | Inpatient (IN) | payer OTHER ==
[~2017-01-28] VITALS: Ht 175.3 cm; Wt 130.0 kg
[~2017-01-28 20:18] MED LIST changes: +AMLODIPINE BESY10 MG PO; -AMLODIPINE BESYL5 MG PO; +AUGMENTIN500 MG PO; +ULTRAM50 MG PO
[2017-01-28 21:21] LABS: HEMATOCRIT 37.7 % (38.0-50.0); MCH 29.6 PG (29.0-34.0); MCV 87.1 FL (86-99); MEAN PLAT.VOLUME 9.2 uM^3 (9.0-12.4); PLATELET COUNT 166 K/uL (156-360); RBC DIS.WIDTH-CV 14.4 % (11.8-14.6); RBC DIS.WIDTH-SD 45.5 % (39-53); RED BLOOD COUNT 4.33 M/uL (4.00-5.50); WHITE BLOOD COUNT 12.2 K/uL (4.1-10.2)
[2017-01-28 21:29] LABS: CHLORIDE 100 mEq/L (99-109); POTASSIUM 3.8 mEq/L (3.7-5.4); SODIUM 138 mEq/L (136-147)
[2017-01-28 21:31] LABS: GLUCOSE 172 mg/dL (70-99)
[2017-01-28 21:33] LABS: ANION GAP 10 MEQ/L (2-14)
[2017-01-28 21:35] LABS: GFR ESTIMATE (CALCULATED) 42 mL/min/
[2017-01-28 21:36] LABS: UREA NITROGEN (BUN) 27 mg/dL (9-23)
[2017-01-28 22:24] LABS: TROP-I INTERPRETATION NEGATIVE; TROPONIN-I 0.01 ng/mL (0.0-0.30)
[2017-01-28] MEDS ORDERED: LASIX20 MG PO (23:47)
[2017-01-29 02:00] VITALS: BP 148/65
[2017-01-29 03:07] LABS: POINT-OF-CARE METER ID UU13113781
[2017-01-29 07:33] VITALS: BP 132/61
[2017-01-29 09:08] LABS: POINT-OF-CARE METER ID UU13113781; POINT-OF-CARE USER ID ENVKC36
[2017-01-29 11:53] LABS: POINT-OF-CARE METER ID UU13113781; POINT-OF-CARE USER ID ENVKC36
[2017-01-29 12:19] VITALS: BP 183/86
[2017-01-29 13:32] LABS: METH RESISTANT S AUREUS PCR NEGATIVE (NEGATIVE)
[2017-01-29 13:33] LABS: PROBE CHECK PASS; SPECIMEN PROCESSING CONTROL PASS
[2017-01-29 14:46] VITALS: BP 145/69
[2017-01-29 15:40] LABS: POINT-OF-CARE METER ID UU13113774
[2017-01-29 21:09] LABS: POINT-OF-CARE METER ID UU13113774
[2017-01-29 21:14] VITALS: BP 164/77
[2017-01-30 00:19] VITALS: BP 181/79
[2017-01-30 05:02] VITALS: BP 129/75; BP 153/67
[2017-01-30 05:56] LABS: POINT-OF-CARE METER ID UU13113774
[2017-01-30 07:08] VITALS: BP 158/60
[2017-01-30 11:31] VITALS: BP 150/68
[2017-01-30 11:39] LABS: POINT-OF-CARE METER ID UU13113774
[2017-01-30 15:41] VITALS: BP 147/69
[2017-01-30 15:55] LABS: GFR ESTIMATE (CALCULATED) > 59 mL/min/
[2017-01-30 16:44] LABS: POINT-OF-CARE METER ID UU13113774
[2017-01-30 21:20] LABS: POINT-OF-CARE METER ID UU13113774
[2017-01-30 23:05] VITALS: BP 166/74
[2017-01-31 05:57] LABS: ANION GAP 5 MEQ/L (2-14); CHLORIDE 102 MEQ/L (99-109); GFR ESTIMATE (CALCULATED) > 59 mL/min/; GLUCOSE 136 mg/dL (70-99); SAMPLE HEMOLYSIS CHECK 0; SAMPLE ICTERIC CHECK 0; SAMPLE LIPEMIA CHECK 0; SODIUM 136 MEQ/L (136-147); UREA NITROGEN (BUN) 29 mg/dL (9-23)
[2017-01-31 06:08] LABS: POINT-OF-CARE METER ID UU13113774
[2017-01-31 07:44] VITALS: BP 138/62
[2017-01-31 11:03] VITALS: BP 150/78
[2017-01-31 11:33] LABS: POINT-OF-CARE METER ID UU13113725
[2017-01-31 15:00] VITALS: BP 145/74
[2017-01-31 16:42] LABS: POINT-OF-CARE METER ID UU13113774
[2017-01-31 20:48] LABS: POINT-OF-CARE METER ID UU13113774
[2017-01-31 20:53] VITALS: BP 169/72
[2017-01-31 23:47] VITALS: BP 165/70
[2017-02-01 06:04] LABS: POINT-OF-CARE METER ID UU13113725
[2017-02-01 07:29] LABS: ANION GAP 6 MEQ/L (2-14); CHLORIDE 100 MEQ/L (99-109); GFR ESTIMATE (CALCULATED) > 59 mL/min/; GLUCOSE 202 mg/dL (70-99); POTASSIUM 4.2 MEQ/L (3.7-5.4); SAMPLE HEMOLYSIS CHECK 0; SAMPLE ICTERIC CHECK 0; SAMPLE LIPEMIA CHECK 0; SODIUM 136 MEQ/L (136-147); UREA NITROGEN (BUN) 33 mg/dL (9-23)
[2017-02-01 07:30] VITALS: BP 164/78
[2017-02-01 11:25] LABS: POINT-OF-CARE METER ID UU13113725
[2017-02-01 15:35] VITALS: BP 172/74
[2017-02-01 16:30] LABS: POINT-OF-CARE METER ID UU13113725
[2017-02-01 19:05] LABS: HEMATOCRIT 40.2 % (38.0-50.0)
[2017-02-01 20:42] LABS: POINT-OF-CARE METER ID UU13113725
[2017-02-01 23:30] VITALS: BP 162/75
[2017-02-02 06:18] LABS: POINT-OF-CARE METER ID UU13113774
[2017-02-02 07:46] VITALS: BP 178/9
[2017-02-02] MEDS ORDERED: CEFDINIR300 MG PO (09:17)
[2017-02-02] MEDS ORDERED: ZITHROMAX500 MG PO (09:18)
[2017-02-02] MEDS ORDERED: PREDNISONE10 MG PO (09:20)
== END 2017-02-02 12:51 | disposition home health service (06) | DRG 193 ==
LOC: EME 20:18 → EDOF 01-29 00:45 → 5EAST 01-29 00:45 → ENRESERV 01-29 00:51 → 4EAST 01-29 02:00 → ENRESERV 01-29 13:25 → 5EAST 01-29 14:21
PROVIDERS: Family Medicine; Hospitalist
DX: J18.0 Bronchopneumonia, unspecified organism (principal); J44.0 Chronic obstructive pulmonary disease with (acute) lower respiratory infection; J96.21 Acute and chronic respiratory failure with hypoxia; J44.1 Chronic obstructive pulmonary disease with (acute) exacerbation; I13.0 Hypertensive heart and chronic kidney disease with heart failure and stage 1 through stage 4 chronic kidney disease, or unspecified chronic kidney disease; I50.33 Acute on chronic diastolic (congestive) heart failure; N18.3 Chronic kidney disease, stage 3 (moderate); E11.22 Type 2 diabetes mellitus with diabetic chronic kidney disease; E11.51 Type 2 diabetes mellitus with diabetic peripheral angiopathy without gangrene; Z99.81 Dependence on supplemental oxygen; E11.43 Type 2 diabetes mellitus with diabetic autonomic (poly)neuropathy; K31.84 Gastroparesis; E66.01 Morbid (severe) obesity due to excess calories; Z68.41 Body mass index [BMI] 40.0-44.9, adult; E11.65 Type 2 diabetes mellitus with hyperglycemia; T38.0X5A Adverse effect of glucocorticoids and synthetic analogues, initial encounter; F17.210 Nicotine dependence, cigarettes, uncomplicated; Z71.6 Tobacco abuse counseling; G47.33 Obstructive sleep apnea (adult) (pediatric); K21.9 Gastro-esophageal reflux disease without esophagitis; B19.20 Unspecified viral hepatitis C without hepatic coma; M06.9 Rheumatoid arthritis, unspecified; E78.5 Hyperlipidemia, unspecified; F32.9 Major depressive disorder, single episode, unspecified; F41.9 Anxiety disorder, unspecified; Z86.73 Personal history of transient ischemic attack (TIA), and cerebral infarction without residual deficits; Y95 Nosocomial condition; Z86.14 Personal history of Methicillin resistant Staphylococcus aureus infection; Z96.41 Presence of insulin pump (external) (internal); Z79.4 Long term (current) use of insulin; Z79.02 Long term (current) use of antithrombotics/antiplatelets; Z79.82 Long term (current) use of aspirin; Z83.3 Family history of diabetes mellitus
CPT/HCPCS: 71010; 71020; 80048; 82565; 82948; 83605; 83880; 84484; 85014; 85018; 85027; 87040; 87070; 87205; 87641; 93005; 94640; 94640 76; 94660; 94799; 99202; 99281; 99285; J0692; J1644; J1815; J1940; J2920; J3370; J7030; J7512

== ENCOUNTER 2017-02-16 14:46 | Emergency (ER) | payer OTHER ==
[~2017-02-16] VITALS: Ht 175.3 cm; Wt 129.4 kg
[~2017-02-16 14:46] MED LIST changes: +CEFDINIR300 MG PO; +ZITHROMAX500 MG PO
[2017-02-16 15:45] LABS: HEMATOCRIT 41.8 % (38.0-50.0); MCH 29.5 PG (29.0-34.0); MCHC 32.5 G/DL (30.0-36.0); MCV 90.7 FL (86-99); MEAN PLAT.VOLUME 9.4 uM^3 (9.0-12.4); PLATELET COUNT 162 K/uL (156-360); RBC DIS.WIDTH-CV 13.9 % (11.8-14.6); RBC DIS.WIDTH-SD 46.1 % (39-53); RED BLOOD COUNT 4.61 M/uL (4.00-5.50); WHITE BLOOD COUNT 7.7 K/uL (4.1-10.2)
[2017-02-16 15:54] LABS: CHLORIDE 97 mEq/L (99-109); POTASSIUM 4.1 mEq/L (3.7-5.4); SODIUM 140 mEq/L (136-147)
[2017-02-16 15:55] LABS: MAGNESIUM 1.9 mg/dL (1.3-2.7)
[2017-02-16 15:57] LABS: GLUCOSE 172 mg/dL (70-99)
[2017-02-16 15:58] LABS: ANION GAP 13 MEQ/L (2-14)
[2017-02-16 15:59] LABS: TOTAL BILIRUBIN 0.6 mg/dL (0.0-1.0)
[2017-02-16 16:00] LABS: ALKALINE PHOSPHATASE 72 IU/L (3-129)
[2017-02-16 16:01] LABS: GFR ESTIMATE (CALCULATED) 35 mL/min/ (58.99-99999)
[2017-02-16 16:02] LABS: UREA NITROGEN (BUN) 49 mg/dL (9-23)
[2017-02-16 16:06] LABS: TROP-I INTERPRETATION NEGATIVE; TROPONIN-I 0.01 ng/mL (0.0-0.30)
[2017-02-16 17:55] LABS: ADD MIUA? YES; BILIRUBIN NEGATIVE; BLOOD SMALL; COLOR YELLOW ((YELLOW)); GLUCOSE (STRIP) 50; KETONES NEGATIVE; LEUKOCYTES NEGATIVE; NITRITE NEGATIVE; PROTEIN (STRIP) 30; SPECIFIC GRAVITY 1.009 (1.000-1.030); UROBILINOGEN 0.2 MG/DL (0.2-1.0)
[2017-02-16 18:02] LABS: BACTERIA NONE SEEN /HPF; EPITHELIAL CELLS NONE SEEN /HPF; HYALINE CASTS 0-5 /LPF; MUCUS TRACE /LPF; WHITE BLOOD CELLS 0-5 /HPF (0-5)
[2017-02-16 19:10] VITALS: BP 182/81
== END 2017-02-16 19:10 | disposition home or self-care (01) ==
LOC: EME 14:46
PROVIDERS: Physician Assistant Medical
DX: N28.9 Disorder of kidney and ureter, unspecified (principal); R60.0 Localized edema; I13.0 Hypertensive heart and chronic kidney disease with heart failure and stage 1 through stage 4 chronic kidney disease, or unspecified chronic kidney disease; I50.9 Heart failure, unspecified; N18.9 Chronic kidney disease, unspecified; K21.9 Gastro-esophageal reflux disease without esophagitis; J44.9 Chronic obstructive pulmonary disease, unspecified; E78.5 Hyperlipidemia, unspecified; I73.9 Peripheral vascular disease, unspecified; F41.9 Anxiety disorder, unspecified; F32.9 Major depressive disorder, single episode, unspecified; F17.200 Nicotine dependence, unspecified, uncomplicated; Z86.73 Personal history of transient ischemic attack (TIA), and cerebral infarction without residual deficits; Z87.442 Personal history of urinary calculi; Z90.49 Acquired absence of other specified parts of digestive tract; Z79.84 Long term (current) use of oral hypoglycemic drugs; Z79.82 Long term (current) use of aspirin; Z88.5 Allergy status to narcotic agent; Z88.1 Allergy status to other antibiotic agents
CPT/HCPCS: 71010; 80053; 81003; 83605; 83735; 83880; 84484; 85027; 87040; 93005; 94640; 99281; 99284; J1940

== ENCOUNTER 2017-06-16 17:31 | Inpatient (IN) | payer OTHER ==
[~2017-06-16] VITALS: Ht 175.3 cm; Wt 125.6 kg
[2017-06-16 18:20] LABS: HEMATOCRIT 41.3 % (38.0-50.0); MCH 29.4 PG (29.0-34.0); MCHC 33.9 G/DL (30.0-36.0); MCV 86.6 FL (86-99); PLATELET COUNT 193 K/uL (156-360); RBC DIS.WIDTH-CV 14.5 % (11.8-14.6); RBC DIS.WIDTH-SD 44.6 % (39-53); RED BLOOD COUNT 4.77 M/uL (4.00-5.50)
[2017-06-16 18:33] LABS: ALBUMIN 3.8 g/dL (3.2-4.8); ALKALINE PHOSPHATASE 105 IU/L (3-129); CHLORIDE 98 mEq/L (99-109); GLUCOSE 115 mg/dL (70-99); SODIUM 139 mEq/L (136-147); TOTAL BILIRUBIN 0.6 mg/dL (0.0-1.0); TOTAL PROTEIN 6.8 g/dL (6.4-8.3)
[2017-06-16 18:34] LABS: CREATININE 1.9 mg/dL (0.6-1.3); GFR ESTIMATE (CALCULATED) 39 mL/min/ (58.99-99999)
[2017-06-16 18:35] LABS: AST (GOT) 17 IU/L (2-34); UREA NITROGEN (BUN) 29 mg/dL (9-23)
[2017-06-16 18:36] LABS: ALT (GPT) 13 IU/L (3-49)
[2017-06-16 18:59] LABS: TROP-I INTERPRETATION NEGATIVE; TROPONIN-I 0.02 ng/mL (0.0-0.30)
[2017-06-16] MEDS ORDERED: CARTIA XT240 MG PO (22:17)
[2017-06-16] MEDS ORDERED: DEMADEX10 MG PO (22:18)
[2017-06-16] MEDS ORDERED: TRADJENTA5 MG PO (22:19)
[2017-06-16] MEDS ORDERED: MIRAPEX1.5 MG PO (22:23)
[2017-06-16 23:09] LABS: PHOSPHORUS 4.1 mg/dL (2.5-4.9)
[2017-06-16 23:30] VITALS: BP 144/71
[2017-06-17] VITALS (7 sets, daily range): BP systolic 136–174; BP diastolic 63–86
[2017-06-17 01:45] LABS: APPEARANCE CLEAR ((CLEAR)); BILIRUBIN NEGATIVE; BLOOD SMALL; COLOR STRAW ((YELLOW)); GLUCOSE (STRIP) NEGATIVE; KETONES NEGATIVE; LEUKOCYTES NEGATIVE; NITRITE NEGATIVE; PROTEIN (STRIP) 30; SPECIFIC GRAVITY 1.008 (1.000-1.030); UROBILINOGEN 0.2 MG/DL (0.2-1.0)
[2017-06-17 01:48] LABS: BACTERIA NONE SEEN /HPF; EPITHELIAL CELLS RARE /HPF; MUCUS TRACE /LPF; RED BLOOD CELLS 0-5 /HPF (0-5); UCUL ADDED? NO; WHITE BLOOD CELLS 0-5 /HPF (0-5)
[2017-06-17 14:25] LABS: CHLORIDE 93 MEQ/L (99-109); CREATININE 2.1 MG/DL (0.6-1.3); GFR ESTIMATE (CALCULATED) 35 mL/min/ (58.99-99999); GLUCOSE 387 mg/dL (70-99); POTASSIUM 4.1 MEQ/L (3.7-5.4); SODIUM 132 MEQ/L (136-147); UREA NITROGEN (BUN) 33 mg/dL (9-23)
[2017-06-18 03:28] VITALS: BP 123/61
[2017-06-18 06:39] LABS: HEMATOCRIT 37.3 % (38.0-50.0); HEMOGLOBIN 12.2 G/DL (12.5-16.6); MCH 28.5 PG (29.0-34.0); MCHC 32.7 G/DL (30.0-36.0); MCV 87.1 FL (86-99); PLATELET COUNT 222 K/uL (156-360); RBC DIS.WIDTH-CV 14.5 % (11.8-14.6); RBC DIS.WIDTH-SD 44.9 % (39-53); RED BLOOD COUNT 4.28 M/uL (4.00-5.50); WHITE BLOOD COUNT 14.2 K/uL (4.1-10.2)
[2017-06-18 07:02] LABS: CHLORIDE 95 MEQ/L (99-109); CREATININE 2.1 MG/DL (0.6-1.3); GFR ESTIMATE (CALCULATED) 35 mL/min/ (58.99-99999); GLUCOSE 313 mg/dL (70-99); POTASSIUM 4.1 MEQ/L (3.7-5.4); SODIUM 135 MEQ/L (136-147); UREA NITROGEN (BUN) 37 mg/dL (9-23)
[2017-06-18 07:41] VITALS: BP 127/60
[2017-06-18 11:34] VITALS: BP 137/65
[2017-06-18 15:31] VITALS: BP 139/66
[2017-06-18 17:04] LABS: BASE EXCESS 6.9 mEq/L (-3 to +3); COMMENTS - BLOOD GASES A+C+; DEVICE NC; METHEMOGLOBIN 1.6 % (0-1.5); O2 FLOW 2 L/MIN; PCO2 52 mm Hg (35-45); PO2 67 mm Hg (80-100); SITE LR; pH 7.41 (7.35-7.45)
[2017-06-18 19:22] VITALS: BP 146/66
[2017-06-18 23:41] VITALS: BP 136/64
[2017-06-19 03:31] VITALS: BP 134/67
[2017-06-19 06:37] LABS: HEMATOCRIT 40.1 % (38.0-50.0); HEMOGLOBIN 13.1 G/DL (12.5-16.6); MCH 28.4 PG (29.0-34.0); MCHC 32.7 G/DL (30.0-36.0); PLATELET COUNT 211 K/uL (156-360); RBC DIS.WIDTH-CV 14.1 % (11.8-14.6); RBC DIS.WIDTH-SD 44.4 % (39-53); RED BLOOD COUNT 4.61 M/uL (4.00-5.50); WHITE BLOOD COUNT 8.9 K/uL (4.1-10.2)
[2017-06-19 07:07] LABS: CHLORIDE 96 MEQ/L (99-109); CREATININE 1.8 MG/DL (0.6-1.3); GFR ESTIMATE (CALCULATED) 42 mL/min/ (58.99-99999); GLUCOSE 190 mg/dL (70-99); POTASSIUM 4.1 MEQ/L (3.7-5.4); SODIUM 136 MEQ/L (136-147); UREA NITROGEN (BUN) 37 mg/dL (9-23)
[2017-06-19 08:27] VITALS: BP 126/70
[2017-06-19] MEDS ORDERED: AZITHROMYCIN500 M1 PO (09:23)
[2017-06-19] MEDS ORDERED: DEMADEX10 MG PO (09:28)
[2017-06-19 11:26] VITALS: BP 164/70
== END 2017-06-19 13:00 | disposition home health service (06) | DRG 291 ==
LOC: EME 17:31 → EDOF 22:04 → ENRESERV 22:07 → 5SOUTH 22:53 → ENPENDDIS 06-19 11:37 → 5SOUTH 06-19 13:00
PROVIDERS: Hospitalist; Nurse Practitioner Family; Physician Assistant Medical
PROC: 5A09357 Assistance with Respiratory Ventilation, Less than 24 Consecutive Hours, Continuous Positive Airway Pressure (ICD-10-PCS; principal; 2017-06-17)
DX: I13.0 Hypertensive heart and chronic kidney disease with heart failure and stage 1 through stage 4 chronic kidney disease, or unspecified chronic kidney disease (principal); J44.1 Chronic obstructive pulmonary disease with (acute) exacerbation; J96.21 Acute and chronic respiratory failure with hypoxia; I50.33 Acute on chronic diastolic (congestive) heart failure; E11.22 Type 2 diabetes mellitus with diabetic chronic kidney disease; E11.43 Type 2 diabetes mellitus with diabetic autonomic (poly)neuropathy; E11.65 Type 2 diabetes mellitus with hyperglycemia; E66.9 Obesity, unspecified; E78.5 Hyperlipidemia, unspecified; E87.1 Hypo-osmolality and hyponatremia; F17.200 Nicotine dependence, unspecified, uncomplicated; G47.33 Obstructive sleep apnea (adult) (pediatric); K31.84 Gastroparesis; N18.3 Chronic kidney disease, stage 3 (moderate); Z79.4 Long term (current) use of insulin; Z99.81 Dependence on supplemental oxygen; Z96.41 Presence of insulin pump (external) (internal); E11.51 Type 2 diabetes mellitus with diabetic peripheral angiopathy without gangrene; Z68.39 Body mass index [BMI] 39.0-39.9, adult; M06.9 Rheumatoid arthritis, unspecified; Z79.02 Long term (current) use of antithrombotics/antiplatelets; Z79.82 Long term (current) use of aspirin
CPT/HCPCS: 36600; 71046; 80048; 80053; 81003; 82803; 82948; 83735; 83880; 84100; 84484; 85027; 85379; 87502; 87641; 93005; 93306; 94640; 94640 76; 94799; 99202; 99281; 99285; J1644; J1940; J2920

== ENCOUNTER 2017-08-18 17:08 | Inpatient (IN) | payer OTHER ==
[~2017-08-18] VITALS: Ht 175.3 cm; Wt 125.8 kg
[~2017-08-18 17:08] MED LIST changes: +AZITHROMYCIN500 M1 PO; +CARTIA XT240 MG PO; +DEMADEX10 MG PO; +TRADJENTA5 MG PO
[2017-08-18 17:56] LABS: HEMATOCRIT 41.4 % (38.0-50.0); HEMOGLOBIN 14.5 G/DL (12.5-16.6); MCH 29.2 PG (29.0-34.0); MCV 83.3 FL (86-99); PLATELET COUNT 174 K/uL (156-360); RBC DIS.WIDTH-CV 15.2 % (11.8-14.6); RBC DIS.WIDTH-SD 45.1 % (39-53); RED BLOOD COUNT 4.97 M/uL (4.00-5.50); WHITE BLOOD COUNT 7.7 K/uL (4.1-10.2)
[2017-08-18 18:08] LABS: CHLORIDE 85 mEq/L (99-109); POTASSIUM 3.9 mEq/L (3.7-5.4); SODIUM 134 mEq/L (136-147)
[2017-08-18 18:11] LABS: GLUCOSE 134 mg/dL (70-99); TOTAL PROTEIN 7.1 g/dL (6.4-8.3)
[2017-08-18 18:13] LABS: TOTAL BILIRUBIN 0.6 mg/dL (0.0-1.0)
[2017-08-18 18:14] LABS: ALKALINE PHOSPHATASE 83 IU/L (3-129); GFR ESTIMATE (CALCULATED) 10 mL/min/ (58.99-99999)
[2017-08-18 18:16] LABS: AST (GOT) 22 IU/L (2-34); UREA NITROGEN (BUN) 122 mg/dL (9-23)
[2017-08-18 18:17] LABS: ALT (GPT) 16 IU/L (3-49)
[2017-08-18] MEDS ORDERED: NORVASC5 MG PO (22:00)
[2017-08-18] MEDS ORDERED: TORSEMIDE100 MG PO (22:13)
[2017-08-18] MEDS ORDERED: METOLAZONE2.5 MG PO (22:15)
[2017-08-18 22:25] LABS: APPEARANCE CLEAR ((CLEAR)); BILIRUBIN NEGATIVE; BLOOD NEGATIVE; COLOR YELLOW ((YELLOW)); GLUCOSE (STRIP) NEGATIVE; KETONES NEGATIVE; LEUKOCYTES NEGATIVE; NITRITE NEGATIVE; PROTEIN (STRIP) NEGATIVE; SPECIFIC GRAVITY 1.009 (1.000-1.030); UROBILINOGEN 0.2 MG/DL (0.2-1.0)
[2017-08-19 00:05] LABS: URIC ACID 18.1 mg/dL (3.1-9.2)
[2017-08-19 01:25] VITALS: BP 160/70
[2017-08-19 04:00] VITALS: BP 108/51
[2017-08-19 05:37] LABS: BASOPHIL (%) 0.8 % (0-1); BASOPHIL COUNT 0.1 K/uL (0-0.1); EOSINOPHIL (%) 5.5 % (0-5); EOSINOPHIL COUNT 0.4 K/uL (0-0.3); HEMATOCRIT 41.8 % (38.0-50.0); HEMOGLOBIN 14.3 G/DL (12.5-16.6); IMMATURE GRANULOCYTE (%) 0.6 % (0.0-0.7); LYMPHOCYTE (%) 21.5 % (15-42); LYMPHOCYTE COUNT 1.5 K/uL (1.0-2.8); MCH 28.8 PG (29.0-34.0); MCHC 34.2 G/DL (30.0-36.0); MCV 84.1 FL (86-99); MONOCYTE (%) 10.9 % (3-12); MONOCYTE COUNT 0.8 K/uL (0-0.8); NEUTROPHIL (%) 60.7 % (45-76); NEUTROPHIL COUNT 4.3 K/uL (1.8-6.4); PLATELET COUNT 162 K/uL (156-360); RBC DIS.WIDTH-CV 15.2 % (11.8-14.6); RBC DIS.WIDTH-SD 45.5 % (39-53); RED BLOOD COUNT 4.97 M/uL (4.00-5.50); WHITE BLOOD COUNT 7.1 K/uL (4.1-10.2)
[2017-08-19 06:13] LABS: ALBUMIN 3.7 G/DL (3.2-4.8); CHLORIDE 88 MEQ/L (99-109); GLUCOSE 91 mg/dL (70-99); MAGNESIUM 2.4 mg/dl (1.3-2.7); PHOSPHORUS 5.8 mg/dL (2.5-4.9); SODIUM 134 MEQ/L (136-147); UREA NITROGEN (BUN) 112 mg/dL (9-23)
[2017-08-19 06:15] LABS: CREATININE 4.8 MG/DL (0.6-1.3); GFR ESTIMATE (CALCULATED) 13 mL/min/ (58.99-99999); POTASSIUM 3.1 MEQ/L (3.7-5.4)
[2017-08-19 06:58] LABS: ALBUMIN 3.7 G/DL (3.4-5.0)
[2017-08-19 07:04] LABS: A/G RATIO 1.5 (1.1-1.8); GLOBULINS 2.5 G/DL (2.3-3.5); TOTAL PROTEIN 6.2 G/DL (6.4-8.2)
[2017-08-19 07:59] VITALS: BP 148/57
[2017-08-19 12:26] VITALS: BP 137/62
[2017-08-19 16:00] VITALS: BP 134/65
[2017-08-19 20:00] VITALS: BP 151/66
[2017-08-20] VITALS (7 sets, daily range): BP systolic 118–157; BP diastolic 57–74
[2017-08-20 06:09] LABS: BASOPHIL (%) 0.6 % (0-1); BASOPHIL COUNT 0.1 K/uL (0-0.1); EOSINOPHIL COUNT 0.2 K/uL (0-0.3); HEMATOCRIT 40.9 % (38.0-50.0); HEMOGLOBIN 13.5 G/DL (12.5-16.6); IMMATURE GRANULOCYTE (%) 0.9 % (0.0-0.7); LYMPHOCYTE (%) 12.3 % (15-42); MCH 28.5 PG (29.0-34.0); MCV 86.5 FL (86-99); MONOCYTE (%) 11.1 % (3-12); MONOCYTE COUNT 0.9 K/uL (0-0.8); NEUTROPHIL (%) 73.1 % (45-76); NEUTROPHIL COUNT 5.8 K/uL (1.8-6.4); PLATELET COUNT 167 K/uL (156-360); RBC DIS.WIDTH-CV 15.4 % (11.8-14.6); RBC DIS.WIDTH-SD 47.8 % (39-53); RED BLOOD COUNT 4.73 M/uL (4.00-5.50); WHITE BLOOD COUNT 7.9 K/uL (4.1-10.2)
[2017-08-20 07:01] LABS: CHLORIDE 96 MEQ/L (99-109); CREATININE 4.2 MG/DL (0.6-1.3); GFR ESTIMATE (CALCULATED) 16 mL/min/ (58.99-99999); POTASSIUM 3.6 MEQ/L (3.7-5.4); SODIUM 139 MEQ/L (136-147)
[2017-08-20 07:04] LABS: GLUCOSE 43 mg/dL (70-99)
[2017-08-20 07:06] LABS: UREA NITROGEN (BUN) 112 mg/dL (9-23)
[2017-08-20 09:29] LABS: ALBUMIN 3.36 G/DL (3.6-4.9); ALPHA-1 GLOBULIN 0.33 G/DL (0.15-0.40); ALPHA-2 GLOBULIN 0.94 G/DL (0.45-0.85); BETA-GLOBULIN 0.74 G/DL (0.65-1.15); GAMMA-GLOBULIN 0.83 G/DL (0.60-1.35)
[2017-08-21 04:04] VITALS: BP 138/64
[2017-08-21 05:22] LABS: BASOPHIL (%) 0.6 % (0-1); EOSINOPHIL (%) 3.7 % (0-5); EOSINOPHIL COUNT 0.3 K/uL (0-0.3); HEMATOCRIT 40.3 % (38.0-50.0); IMMATURE GRANULOCYTE (%) 0.6 % (0.0-0.7); LYMPHOCYTE (%) 14.9 % (15-42); LYMPHOCYTE COUNT 1.1 K/uL (1.0-2.8); MCHC 32.3 G/DL (30.0-36.0); MCV 86.7 FL (86-99); MONOCYTE (%) 8.8 % (3-12); MONOCYTE COUNT 0.6 K/uL (0-0.8); NEUTROPHIL (%) 71.4 % (45-76); PLATELET COUNT 149 K/uL (156-360); RBC DIS.WIDTH-CV 15.3 % (11.8-14.6); RBC DIS.WIDTH-SD 48.2 % (39-53); RED BLOOD COUNT 4.65 M/uL (4.00-5.50)
[2017-08-21 06:20] LABS: CHLORIDE 97 MEQ/L (99-109); GFR ESTIMATE (CALCULATED) 25 mL/min/ (58.99-99999); GLUCOSE 56 mg/dL (70-99); POTASSIUM 3.5 MEQ/L (3.7-5.4); SODIUM 138 MEQ/L (136-147); UREA NITROGEN (BUN) 73 mg/dL (9-23)
[2017-08-21 06:22] LABS: CREATININE 2.8 MG/DL (0.6-1.3)
[2017-08-21 07:44] VITALS: BP 145/70
[2017-08-21 12:00] VITALS: BP 143/69
== END 2017-08-21 14:04 | disposition home health service (06) | DRG 683 ==
LOC: EME 17:08 → EDOF 22:59 → 5SOUTH 22:59 → ENRESERV 23:07 → CANRESERV 23:07 → ENRESERV 23:22 → 5SOUTH 08-19 00:56
PROVIDERS: Hospitalist; Internal Medicine Nephrology
DX: N17.9 Acute kidney failure, unspecified (principal); I13.0 Hypertensive heart and chronic kidney disease with heart failure and stage 1 through stage 4 chronic kidney disease, or unspecified chronic kidney disease; N18.4 Chronic kidney disease, stage 4 (severe); I50.9 Heart failure, unspecified; J96.11 Chronic respiratory failure with hypoxia; E66.01 Morbid (severe) obesity due to excess calories; E78.5 Hyperlipidemia, unspecified; E86.0 Dehydration; G47.33 Obstructive sleep apnea (adult) (pediatric); J44.9 Chronic obstructive pulmonary disease, unspecified; E10.22 Type 1 diabetes mellitus with diabetic chronic kidney disease; E10.42 Type 1 diabetes mellitus with diabetic polyneuropathy; E10.43 Type 1 diabetes mellitus with diabetic autonomic (poly)neuropathy; K31.84 Gastroparesis; Z99.81 Dependence on supplemental oxygen; Z79.4 Long term (current) use of insulin; Z68.41 Body mass index [BMI] 40.0-44.9, adult; Z46.81 Encounter for fitting and adjustment of insulin pump; Z74.01 Bed confinement status; E10.51 Type 1 diabetes mellitus with diabetic peripheral angiopathy without gangrene; E83.39 Other disorders of phosphorus metabolism; E87.1 Hypo-osmolality and hyponatremia; E87.6 Hypokalemia; F17.210 Nicotine dependence, cigarettes, uncomplicated; Z90.49 Acquired absence of other specified parts of digestive tract; T50.2X5A Adverse effect of carbonic-anhydrase inhibitors, benzothiadiazides and other diuretics, initial encounter
CPT/HCPCS: 71045; 74176; 76770; 80048; 80053; 80069; 81003; 82436; 82570; 82948; 83735; 83883 90; 84100; 84133; 84156; 84165; 84300; 84550; 85025; 85027; 93005; 93306; 94640; 94640 76; 94760; 94799; 99202; 99281; 99285; J1644; J7030

== ENCOUNTER 2017-09-14 18:23 | Emergency (ER) | payer OTHER ==
[~2017-09-14] VITALS: Ht 175.3 cm; Wt 132.7 kg
[~2017-09-14 18:23] MED LIST changes: +METOLAZONE2.5 MG PO; +NORVASC5 MG PO; +TORSEMIDE100 MG PO
[2017-09-14 19:05] LABS: HEMATOCRIT 40.4 % (38.0-50.0); HEMOGLOBIN 13.8 G/DL (12.5-16.6); MCH 29.4 PG (29.0-34.0); MCHC 34.2 G/DL (30.0-36.0); MCV 86.1 FL (86-99); RBC DIS.WIDTH-CV 15.8 % (11.8-14.6); RBC DIS.WIDTH-SD 48.6 % (39-53); RED BLOOD COUNT 4.69 M/uL (4.00-5.50); WHITE BLOOD COUNT 7.7 K/uL (4.1-10.2)
[2017-09-14 19:07] LABS: PLATELET COUNT 205 K/uL (156-360)
[2017-09-14 19:15] LABS: CHLORIDE 102 mEq/L (99-109); POTASSIUM 3.4 mEq/L (3.7-5.4); SODIUM 144 mEq/L (136-147)
[2017-09-14 19:21] LABS: CREATININE 1.8 mg/dL (0.6-1.3); GFR ESTIMATE (CALCULATED) 42 mL/min/ (58.99-99999); UREA NITROGEN (BUN) 20 mg/dL (9-23)
[2017-09-14 19:23] LABS: GLUCOSE 47 mg/dL (70-99)
[2017-09-14] MEDS ORDERED: KEFLEX500 MG PO (20:42)
[2017-09-14] MEDS ORDERED: PERCOCET 5/31 TABLET PO (20:42)
[2017-09-14 21:11] LABS: APPEARANCE CLEAR ((CLEAR)); BILIRUBIN NEGATIVE; BLOOD SMALL; COLOR YELLOW ((YELLOW)); GLUCOSE (STRIP) NEGATIVE; KETONES NEGATIVE; LEUKOCYTES NEGATIVE; NITRITE NEGATIVE; PROTEIN (STRIP) 100; SPECIFIC GRAVITY 1.012 (1.000-1.030); UROBILINOGEN 0.2 MG/DL (0.2-1.0)
[2017-09-14 21:22] LABS: BACTERIA NONE SEEN /HPF; EPITHELIAL CELLS NONE SEEN /HPF; MUCUS TRACE /LPF; UCUL ADDED? NO; WHITE BLOOD CELLS 0-5 /HPF (0-5)
[2017-09-14 21:36] VITALS: BP 148/67
== END 2017-09-14 21:37 | disposition home or self-care (01) ==
LOC: EME 18:23
PROVIDERS: Physician Assistant
DX: L03.115 Cellulitis of right lower limb (principal); N28.1 Cyst of kidney, acquired; J44.9 Chronic obstructive pulmonary disease, unspecified; N18.9 Chronic kidney disease, unspecified; K74.60 Unspecified cirrhosis of liver; K21.9 Gastro-esophageal reflux disease without esophagitis; E78.5 Hyperlipidemia, unspecified; R56.9 Unspecified convulsions; F32.9 Major depressive disorder, single episode, unspecified; F41.9 Anxiety disorder, unspecified; F17.200 Nicotine dependence, unspecified, uncomplicated; Z79.82 Long term (current) use of aspirin; Z79.02 Long term (current) use of antithrombotics/antiplatelets; Z79.4 Long term (current) use of insulin; Z79.51 Long term (current) use of inhaled steroids; Z99.81 Dependence on supplemental oxygen; Z96.41 Presence of insulin pump (external) (internal); Z95.810 Presence of automatic (implantable) cardiac defibrillator; Z86.79 Personal history of other diseases of the circulatory system; Z86.39 Personal history of other endocrine, nutritional and metabolic disease; Z87.19 Personal history of other diseases of the digestive system; Z87.442 Personal history of urinary calculi; Z86.73 Personal history of transient ischemic attack (TIA), and cerebral infarction without residual deficits; Z90.49 Acquired absence of other specified parts of digestive tract; Z88.5 Allergy status to narcotic agent; Z88.1 Allergy status to other antibiotic agents
CPT/HCPCS: 76770; 80048; 81003; 82948; 85027; 99281; 99284

== ENCOUNTER 2017-09-19 12:09 | Observation (INO) | payer OTHER ==
[~2017-09-19] VITALS: Ht 175.3 cm; Wt 133.7 kg
[2017-09-19 13:15] LABS: BASOPHIL (%) 0.4 % (0-1); EOSINOPHIL (%) 3.2 % (0-5); EOSINOPHIL COUNT 0.2 K/uL (0-0.3); HEMATOCRIT 39.6 % (38.0-50.0); HEMOGLOBIN 13.4 G/DL (12.5-16.6); LYMPHOCYTE (%) 11.7 % (15-42); LYMPHOCYTE COUNT 0.8 K/uL (1.0-2.8); MCH 29.4 PG (29.0-34.0); MCHC 33.8 G/DL (30.0-36.0); MCV 86.8 FL (86-99); MONOCYTE (%) 7.5 % (3-12); MONOCYTE COUNT 0.5 K/uL (0-0.8); NEUTROPHIL (%) 76.2 % (45-76); NEUTROPHIL COUNT 5.4 K/uL (1.8-6.4); PLATELET COUNT 152 K/uL (156-360); RBC DIS.WIDTH-CV 15.9 % (11.8-14.6); RBC DIS.WIDTH-SD 49.5 % (39-53); RED BLOOD COUNT 4.56 M/uL (4.00-5.50); WHITE BLOOD COUNT 7.1 K/uL (4.1-10.2)
[2017-09-19 13:25] LABS: COMMENTS - BLOOD GASES +C; DEVICE NC; O2 FLOW 3 L/MIN; SITE LR +A; TOTAL RESP RATE 18 resp/min; pH 7.43 (7.35-7.45)
[2017-09-19 13:26] LABS: BASE EXCESS 9.2 mEq/L (-3 to +3); BICARBONATE 35.2 mEq/L (22-26); CARBOXY HGB 7.8 % (0-5); O2 SATURATION (CALCULATED) 93.9 % (95-99); PCO2 53 mm Hg (35-45); PO2 58 mm Hg (80-100)
[2017-09-19 13:26] LABS: ALBUMIN 3.5 g/dL (3.2-4.8); CHLORIDE 99 mEq/L (99-109); POTASSIUM 3.5 mEq/L (3.7-5.4); SODIUM 140 mEq/L (136-147)
[2017-09-19 13:28] LABS: GLUCOSE 101 mg/dL (70-99); TOTAL PROTEIN 6.5 g/dL (6.4-8.3)
[2017-09-19 13:30] LABS: TOTAL BILIRUBIN 0.6 mg/dL (0.0-1.0)
[2017-09-19 13:32] LABS: ALKALINE PHOSPHATASE 108 IU/L (3-129); CREATININE 1.5 mg/dL (0.6-1.3); GFR ESTIMATE (CALCULATED) 51 mL/min/ (58.99-99999)
[2017-09-19 13:33] LABS: UREA NITROGEN (BUN) 24 mg/dL (9-23)
[2017-09-19 13:34] LABS: AST (GOT) 16 IU/L (2-34)
[2017-09-19 13:35] LABS: ALT (GPT) 12 IU/L (3-49)
[2017-09-19 13:36] LABS: TROP-I INTERPRETATION NEGATIVE; TROPONIN-I 0.01 ng/mL (0.0-0.30)
[2017-09-19 16:15] LABS: APPEARANCE CLEAR ((CLEAR)); BILIRUBIN NEGATIVE; BLOOD SMALL; COLOR STRAW ((YELLOW)); GLUCOSE (STRIP) NEGATIVE; KETONES NEGATIVE; LEUKOCYTES NEGATIVE; NITRITE NEGATIVE; PROTEIN (STRIP) 30; SPECIFIC GRAVITY 1.008 (1.000-1.030); UROBILINOGEN 0.2 MG/DL (0.2-1.0)
[2017-09-19] MEDS ORDERED: KEFLEX500 MG PO (16:18)
[2017-09-19] MEDS ORDERED: DEMADEX20 MG PO (16:21)
[2017-09-19] MEDS ORDERED: CARDURA2 M1 PO (16:21)
[2017-09-19 16:22] LABS: BACTERIA NONE SEEN /HPF; EPITHELIAL CELLS NONE SEEN /HPF; MUCUS NONE SEEN /LPF; RED BLOOD CELLS 0-5 /HPF (0-5); UCUL ADDED? NO; WHITE BLOOD CELLS 0-5 /HPF (0-5)
[2017-09-19 16:30] LABS: AMPHETAMINE NEGATIVE (500 ng/mL); BARBITURATES NEGATIVE (200 ng/mL); BENZODIAZEPINES NEGATIVE (150 ng/mL); BUPRENORPHINE NEGATIVE (10 ng/mL); COCAINE NEGATIVE (150 ng/mL); METHADONE NEGATIVE (200 ng/mL); METHAMPHETAMINE NEGATIVE (500 ng/mL); OPIATES (MORPHINE) NEGATIVE (100 ng/mL); OXYCODONE PRESUMPTIVE POSITIVE (100 ng/mL); PHENCYCLIDINE NEGATIVE (25 ng/mL); PROPOXYPHENE NEGATIVE (300 ng/mL); THC CANNABINOIDS PRESUMPTIVE POSITIVE (50 ng/mL); TRICYCLIC ANTIDEPRESSANTS NEGATIVE (300 ng/mL)
[2017-09-19 18:25] VITALS: BP 185/85
[2017-09-19 19:49] VITALS: BP 149/69
[2017-09-19 23:38] VITALS: BP 153/68
[2017-09-20 03:58] VITALS: BP 140/67
[2017-09-20 05:42] LABS: HEMATOCRIT 36.8 % (38.0-50.0); HEMOGLOBIN 12.1 G/DL (12.5-16.6); MCH 28.8 PG (29.0-34.0); MCHC 32.9 G/DL (30.0-36.0); MCV 87.6 FL (86-99); PLATELET COUNT 157 K/uL (156-360); RBC DIS.WIDTH-CV 16.3 % (11.8-14.6); RBC DIS.WIDTH-SD 51.3 % (39-53); WHITE BLOOD COUNT 6.3 K/uL (4.1-10.2)
[2017-09-20 06:07] LABS: CHLORIDE 100 MEQ/L (99-109); CREATININE 1.7 MG/DL (0.6-1.3); GFR ESTIMATE (CALCULATED) 44 mL/min/ (58.99-99999); GLUCOSE 122 mg/dL (70-99); POTASSIUM 3.2 MEQ/L (3.7-5.4); SODIUM 141 MEQ/L (136-147); UREA NITROGEN (BUN) 23 mg/dL (9-23)
[2017-09-20 07:12] VITALS: BP 178/77
[2017-09-20 09:43] LABS: BASE EXCESS 9.3 mEq/L (-3 to +3); BICARBONATE 35.3 mEq/L (22-26); CARBOXY HGB 2.6 % (0-5); METHEMOGLOBIN 1.1 % (0-1.5); PCO2 52 mm Hg (35-45); PO2 59 mm Hg (80-100); pH 7.44 (7.35-7.45)
[2017-09-20 09:44] LABS: COMMENTS - BLOOD GASES A+C+; DEVICE NC; O2 FLOW 2 L/MIN; SITE RR
[2017-09-20 11:25] VITALS: BP 184/86
[2017-09-20] MEDS ORDERED: LISINOPRIL5 MG PO (13:19)
== END 2017-09-20 14:00 | disposition home or self-care (01) ==
LOC: EME 12:09 → EDOF 16:08 → ENRESERV 16:08 → EDOF 16:08 → ENRESERV 16:19 → 4SOUTH 18:02
PROVIDERS: Emergency Medicine; Hospitalist; Physician Assistant
DX: E87.2 Acidosis (principal); E87.6 Hypokalemia; I13.0 Hypertensive heart and chronic kidney disease with heart failure and stage 1 through stage 4 chronic kidney disease, or unspecified chronic kidney disease; E11.22 Type 2 diabetes mellitus with diabetic chronic kidney disease; I50.32 Chronic diastolic (congestive) heart failure; N18.4 Chronic kidney disease, stage 4 (severe); J96.10 Chronic respiratory failure, unspecified whether with hypoxia or hypercapnia; J44.9 Chronic obstructive pulmonary disease, unspecified; M54.5 Low back pain; R26.89 Other abnormalities of gait and mobility; G47.33 Obstructive sleep apnea (adult) (pediatric); Z99.81 Dependence on supplemental oxygen; E66.01 Morbid (severe) obesity due to excess calories; I87.8 Other specified disorders of veins; R60.9 Edema, unspecified; L03.116 Cellulitis of left lower limb; L03.115 Cellulitis of right lower limb; Z96.41 Presence of insulin pump (external) (internal); E11.51 Type 2 diabetes mellitus with diabetic peripheral angiopathy without gangrene; E11.43 Type 2 diabetes mellitus with diabetic autonomic (poly)neuropathy; E87.1 Hypo-osmolality and hyponatremia; F17.200 Nicotine dependence, unspecified, uncomplicated; Z95.820 Peripheral vascular angioplasty status with implants and grafts; Z88.5 Allergy status to narcotic agent; Z88.1 Allergy status to other antibiotic agents
CPT/HCPCS: 36600; 70450; 71045; 72131; 80048; 80053; 81003; 82140; 82948; 83605; 83880; 84484; 84999; 85025; 85027; 85610; 87040; 94640; 94799; 99281; 99285; G0378; G8978 GP CI; G8979 GP CH; G8980 GP CI; G8987 GO CJ; G8988 GO CH; G8989 CJ; G8989 GO CH; J1644